=== PATIENT | female | born 1995 | race Caucasian/White ===

== ENCOUNTER 2017-06-28 22:31 | Emergency (ER) | payer OTHER ==
[~2017-06-28] VITALS: Ht 165.1 cm; Wt 60.0 kg
[~2017-06-28 22:31] MED LIST: PARO20TA99 PO
--- NOTE | 2017-06-28 22:35 | ED.ADGEN ---
Past History Past Medical History: Anxiety, Depression, Seizure, Other Past Surgical History: No Surgical History Smoking: Non-smoker Alcohol Use: None Drug Use: None Adult General Chief Complaint Chief Complaint " .. I am really nauseated.. and got this bad abd. pain .. " HPI HPI Patient is a 22 year old female who presents with above hx and complaints of nausea, vomiting, diarrhea and abd. pain. Pt. states pain started after eating chicken salad tonight at 1800. No one else got sick eating the same food. Pain is rated 10/10 in epigastric area. Pt. currently vomiting up food products. No history of travel or specific ill contacts.Immunosuppression. No history of prior abdomen problems. Patient mother has a history of gallbladder disease which required surgery. No history of dark or tarry stools. Has had multiple diarrhea stools. Review of Systems Review of Systems Constitutional: Denies fever or chills [] Eyes: Denies change in visual acuity, redness, or eye pain [] HENT: Denies nasal congestion or sore throat [] Respiratory: Denies cough or shortness of breath [] Cardiovascular: No additional information not addressed in HPI [] GI: Complaints of abdominal pain, nausea, vomiting, and diarrhea [] : Denies dysuria or hematuria [] Musculoskeletal: Denies back pain or joint pain [] Integument: Denies rash or skin lesions [] Neurologic: Denies headache, focal weakness or sensory changes [] Endocrine: Denies polyuria or polydipsia [] All other systems were reviewed and found to be within normal limits, except as documented in this note. Family History Family History Mother had gallbladder disease Current Medications Current Medications Current Medications Medications (Trade) Dose Ordered Sig/Olesya Start Time Stop Time Status Last Admin Dose Admin Diphenhydramine HCl (Benadryl) 25 mg 1X ONCE 06/28/17 23:30 06/28/17 23:31 DC 06/28/17 23:44 25 MG Famotidine (Pepcid Vial) 20 mg 1X ONCE 06/28/17 23:30 06/28/17 23:31 DC 06/28/17 23:44 20 MG Fentanyl Citrate (Fentanyl 2ml Vial) 50 mcg 1X ONCE 06/28/17 23:30 06/28/17 23:31 DC 06/28/17 23:44 50 MCG Info (Do NOT chart on this entry -- for MONITORING) 1 each PRN DAILY PRN 06/29/17 00:30 06/29/17 02:25 DC Iohexol (Omnipaque 300 Mg/ml) 75 ml 1X ONCE 06/29/17 01:00 06/29/17 01:01 DC 06/29/17 00:40 75 ML Lactated Ringer's 1,000 ml @ 1,000 mls/hr Q1H 06/28/17 23:30 06/29/17 00:29 DC 06/28/17 23:30 1,000 MLS/HR Ondansetron HCl (Zofran) 8 mg 1X ONCE 06/28/17 23:30 06/28/17 23:31 DC 06/28/17 23:29 8 MG Sodium Chloride 1,000 ml @ 1,000 mls/hr 1X ONCE 06/29/17 00:30 06/29/17 01:29 DC 06/28/17 23:12 1,000 MLS/HR See nursing for home medications Allergies Allergies Allergies Coded Allergies Type Severity Reaction Last Updated Verified No Known Drug Allergies 06/09/13 No Physical Exam Physical Exam Constitutional: Well developed, well nourished, in acute distress, non-toxic appearance. [] HENT: Normocephalic, atraumatic, bilateral external ears normal, oropharynx moist, no oral exudates, nose normal. Glasses Eyes: PERRLA, EOMI, conjunctiva normal, no discharge. [] Neck: Normal range of motion, no tenderness, supple, no stridor. [] Cardiovascular:Heart rate regular rhythm, no murmur [] Lungs & Thorax: Bilateral breath sounds clear to auscultation [] Abdomen: Bowel sounds hyperactive, soft, epigastric tenderness, no masses, no pulsatile masses. [] Umbilicus ring. ( Pt refuses removal for CT and xrays) Skin: Warm, dry, no erythema, no rash. [] Back: No tenderness, no CVA tenderness. [] Extremities: No tenderness, no cyanosis, no clubbing, ROM intact, no edema. [] Neurologic: Alert and oriented X 3, normal motor function, normal sensory function, no focal deficits noted. [] Psychologic: Affect anxious, judgement normal, mood normal. [] Current Patient Data Vital Signs Vital Signs Date Time Temp Pulse Resp B/P (MAP) Pulse Ox O2 Delivery O2 Flow Rate FiO2 06/29/17 02:00 99.4 06/28/17 23:38 149 20 96 Room Air Lab Results Laboratory Tests Test 06/28/17 23:12 06/28/17 23:30 White Blood Count 19.7 x10^3/uL (4.0-11.0) H Red Blood Count 5.41 x10^6/uL (3.50-5.40) H Hemoglobin 15.7 g/dL (12.0-15.5) H Hematocrit 46.0 % (36.0-47.0) Mean Corpuscular Volume 85 fL (79-100) Mean Corpuscular Hemoglobin 29 pg (25-35) Mean Corpuscular Hemoglobin Concent 34 g/dL (31-37) Red Cell Distribution Width 13.0 % (11.5-14.5) Platelet Count 301 x10^3/uL (140-400) Neutrophils (%) (Auto) 87 % (31-73) H Lymphocytes (%) (Auto) 10 % (24-48) L Monocytes (%) (Auto) 3 % (0-9) Eosinophils (%) (Auto) 1 % (0-3) Basophils (%) (Auto) 0 % (0-3) Neutrophils # (Auto) 17.1 x10^3uL (1.8-7.7) H Lymphocytes # (Auto) 1.9 x10^3/uL (1.0-4.8) Monocytes # (Auto) 0.6 x10^3/uL (0.0-1.1) Eosinophils # (Auto) 0.1 x10^3/uL (0.0-0.7) Basophils # (Auto) 0.1 x10^3/uL (0.0-0.2) Segmented Neutrophils % 76 % (35-66) H Band Neutrophils % 6 % (0-9) Lymphocytes % 8 % (24-48) L Atypical Lymphocytes % (Manual) 7 % (0-0) H Monocytes % 3 % (0-10) Platelet Estimate Adequate (ADEQUATE) Urine Collection Type U cath Urine Color Straw Urine Clarity Clear Urine pH 5.5 Urine Specific [place] >=1.030 Urine Protein Trace (NEG-TRACE) Urine Glucose (UA) Neg mg/dL (NEG) Urine Ketones (Stick) 15 mg/dL (NEG) Urine Blood Small (NEG) Urine Nitrite Neg (NEG) Urine Bilirubin Neg (NEG) Urine Urobilinogen Dipstick 0.2 mg/dL (0.2 mg/dL) Urine Leukocyte Esterase Neg (NEG) Urine RBC 1-2 /HPF (0-2) Urine WBC Rare /HPF (0-4) Urine Squamous Epithelial Cells Many /LPF Urine Bacteria Few /HPF (0-FEW) Urine Mucus Mod /LPF Sodium Level 138 mmol/L (136-145) Potassium Level 3.6 mmol/L (3.5-5.1) Chloride Level 103 mmol/L (98-107) Carbon Dioxide Level 23 mmol/L (21-32) Anion Gap 12 (6-14) Blood Urea Nitrogen 17 mg/dL (7-20) Creatinine 0.7 mg/dL (0.6-1.0) Estimated GFR (Cockcroft-Gault) 104.6 Glucose Level 93 mg/dL (70-99) Calcium Level 9.3 mg/dL (8.5-10.1) Total Bilirubin 1.1 mg/dL (0.2-1.0) H Direct Bilirubin 0.2 mg/dL (0.0-0.2) Aspartate Amino Transferase (AST) 23 U/L (15-37) Alanine Aminotransferase (ALT) 18 U/L (14-59) Alkaline Phosphatase 62 U/L (46-116) Total Protein 8.5 g/dL (6.4-8.2) H Albumin 4.6 g/dL (3.4-5.0) Amylase Level 89 U/L (25-115) Lipase 185 U/L (73-393) Urine Opiates Screen Neg (NEG) Urine Methadone Screen Neg (NEG) Urine Barbiturates Neg (NEG) Urine Phencyclidine Screen Neg (NEG) Urine Amphetamine/Methamphetamine Neg (NEG) Urine Benzodiazepines Screen Neg (NEG) Urine Cocaine Screen Neg (NEG) Urine Cannabinoids Screen Neg (NEG) Urine Ethyl Alcohol Neg (NEG) Influenza Type A (Rapid) Negative (NEGATIVE) Influenza Type B (Rapid) Negative (NEGATIVE) EKG EKG [] Radiology/Procedures Radiology/Procedures My interpretation of abdomen film shows no free air under diaphragm. No acute cardiopulmonary findings. Abdomen shows nonspecific bowel gas pattern. CT of abdomen findings no acute surgical process.[] Course & Med Decision Making Course & Med Decision Making Pertinent Labs and Imaging studies reviewed. (See chart for details). Stay on a clear fluid diet only. Push clear fluids. No milk products or solids for 48 hours. Take Zofran and Vicoprofen as needed for marked discomfort. May use small amounts of Pepto-Bismol for diarrhea episodes. Follow-up primary care. Return if any emergent changes. [] Final Impression Final Impression 1. Abdomen Pain 2. [Gastroenteritis 3. Leukocytosis 4. Viral Syndrome Problems: Dragon Disclaimer Dragon Disclaimer This electronic medical record was generated, in whole or in part, using a voice recognition dictation system. ALEE WILCOX MD Jun 28, 2017 22:35
[2017-06-28] MEDS ORDERED: FAMOTIDINE 20 MG/2 ML VIAL IVP ONE (23:30)
[2017-06-28] MEDS ORDERED: IV RINGERS SOLUTION,LACTATED 1,000 ML IV SCH (23:30)
[2017-06-28] MEDS ORDERED: ONDANSETRON PF 4 MG/2 ML VIAL. IV ONE (23:30)
[2017-06-28] MEDS ORDERED: diphenhydrAMINE 50 MG/ML VIAL IVP ONE (23:30)
[2017-06-28 23:31] LABS: BASO # 0.1 x10^3/uL (0.0-0.2); BASO % 0 % (0-3); EOS # 0.1 x10^3/uL (0.0-0.7); EOS % 1 % (0-3); HEMOGLOBIN 15.7 g/dL (12.0-15.5); LYMPH # 1.9 x10^3/uL (1.0-4.8); LYMPH % 10 % (24-48); MEAN CORPUSCULAR HEMOGLOBIN 29 pg (25-35); MEAN CORPUSCULAR HGB CONC 34 g/dL (31-37); MEAN CORPUSCULAR VOLUME 85 fL (79-100); MONO # 0.6 x10^3/uL (0.0-1.1); MONO % 3 % (0-9); NEUT # 17.1 x10^3uL (1.8-7.7); NEUT % 87 % (31-73); PLATELET COUNT 301 x10^3/uL (140-400); RED BLOOD COUNT 5.41 x10^6/uL (3.50-5.40); WHITE BLOOD COUNT 19.7 x10^3/uL (4.0-11.0)
[2017-06-28 23:36] LABS: ALBUMIN 4.6 g/dL (3.4-5.0); CALCIUM 9.3 mg/dL (8.5-10.1); CREATININE 0.7 mg/dL (0.6-1.0); DIRECT BILIRUBIN 0.2 mg/dL (0.0-0.2); GFR 104.6; POTASSIUM 3.6 mmol/L (3.5-5.1); TOTAL BILIRUBIN 1.1 mg/dL (0.2-1.0); TOTAL PROTEIN 8.5 g/dL (6.4-8.2)
[2017-06-28 23:38] VITALS: BP 123/84
[2017-06-28 23:38] LABS: AMPHETAMINE/METHAMPHETAMINE NEG (NEG); BARBITURATES NEG (NEG); BENZODIAZEPINES NEG (NEG); CANNABINOIDS NEG (NEG); COCAINE NEG (NEG); METHADONE NEG (NEG); OPIATES NEG (NEG); PHENCYCLIDINE NEG (NEG)
[2017-06-28 23:54] LABS: BILIRUBIN,URINE NEG (NEG); CLARITY,URINE CLEAR; COLOR,URINE STRAW; GLUCOSE,URINE NEG (NEG); NITRITE,URINE NEG (NEG); UROBILINOGEN,URINE 0.2 mg/dL (0.2 mg/dL)
[2017-06-28 23:55] LABS: BACTERIA,URINE FEW /HPF (0-FEW); SQUAMOUS EPITHELIAL CELL,UR MANY /LPF; WBC,URINE RARE /HPF (0-4)
[2017-06-29 00:05] LABS: % BANDS 6 % (0-9); % LYMPHS 8 % (24-48); % MONOS 3 % (0-10); % SEGS 76 % (35-66)
[2017-06-29 00:06] LABS: % ATYL 7 % (0-0); PLT ESTIMATE ADEQUATE (ADEQUATE)
[2017-06-29 00:07] LABS: INFLUENZA A PATIENT NEGATIVE (NEGATIVE); INFLUENZA B PATIENT NEGATIVE (NEGATIVE)
[2017-06-29] MEDS ORDERED: IV NORMAL SALINE 1,000ML 1,000 ML IV ONE (00:30)
[2017-06-29] MEDS ORDERED: CONTRAST GIVEN MC PRN (00:30)
[2017-06-29] MEDS ORDERED: IOHEXOL 300 MG/ML 75 ML VIAL. IV ONE (01:00)
--- NOTE | 2017-06-29 01:48 | RAD ---
INDICATION: Omni 300, 75ml IV. N, V, D and abdominal pain radiating down to LLQ x 3 hours. No prior exams for comparison COMPARISON: None. TECHNIQUE: Axial CT images were obtained through the abdomen and pelvis with intravenous contrast. One or more of the following individualized dose reduction techniques were utilized for this examination: 1. Automated exposure control; 2. Adjustment of the mA and/or kV according to patient size; 3. Use of iterative reconstruction technique. FINDINGS: Chest Base: Partially imaged without gross abnormality. Vessels: No abdominal aortic aneurysm. Liver/Biliary: No intrahepatic biliary duct dilation. Pancreas: No peripancreatic edema. Spleen: Normal. Kidneys/Adrenal: No hydronephrosis. Bladder: Largely decompressed. GI: No free air. No bowel dilation to suggest obstruction. The appendix does not appear dilated at this time. IMPRESSION: 1. No hydronephrosis or evidence of appendicitis. 2. No definite evidence of bowel obstruction. Electronically signed by: Eran Miller MD (06/29/2017 1:44 AM) [id number]
[2017-06-29] MEDS ORDERED: HYDR-79 PO (01:58)
[2017-06-29] MEDS ORDERED: ONDA8TAB12 PO (01:58)
[2017-06-29] MEDS ORDERED: RANI150T6 PO (02:02)
--- NOTE | 2017-06-29 09:56 | RAD ---
Indication: Nausea, vomiting and diarrhea. Technique: Abdominal x-rays Comparison: None Findings: Heart is normal in size. Lungs are clear. No pneumothorax or pleural effusion. No evidence of free intraperitoneal air. No abnormally dilated bowel loops or air-fluid levels. No abnormal calcific densities projecting over the abdomen or pelvis. Visualized osseous structures are within normal limits. Impression: No acute radiographic abnormalities.
== END 2017-06-29 02:00 | disposition home or self-care (01) ==
LOC: ER 22:31
DX: K52.9 Noninfective gastroenteritis and colitis, unspecified (principal); B34.9 Viral infection, unspecified; D72.829 Elevated white blood cell count, unspecified
CPT/HCPCS: 36415; 74022; 74177; 80048; 80076; 80307; 81001; 82150; 83690; 85007; 85025; 87324; 87804; 96361; 96374; 96375; 99285; J1200; J2405; J3010; J7120; Q9967; S0028; 81025; G0479; J7030

== ENCOUNTER 2018-02-11 16:54 | Emergency (ER) | payer OTHER ==
[~2018-02-11] VITALS: Ht 165.1 cm; Wt 60.0 kg
[~2018-02-11 16:54] MED LIST changes: +HYDR-79 PO; +ONDA8TAB12 PO; +RANI150T21 PO
--- NOTE | 2018-02-11 17:39 | RAD ---
CT HEAD WO CONTRAST History: Syncopal episode today, fall, hit head, seizure history Comparison: None. Technique: Noncontrast CT imaging was performed of the head. Exposure: One or more of the following individualized dose reduction techniques were utilized for this examination: 1. Automated exposure control 2. Adjustment of the mA and/or kV according to patient size 3. Use of iterative reconstruction technique. Findings: No acute extra-axial or parenchymal hemorrhage is identified. There is no significant intra-axial mass effect, midline shift, or extra-axial fluid collection. The irby-white differentiation of the major vascular territories is preserved. The ventricles, sulci, and cisterns are within normal limits in size and configuration. There is mild left maxillary sinus mucosal thickening. Mastoid air cells are aerated. No acute calvarial abnormality is identified. Impression: 1. No acute intracranial abnormality is identified. Electronically signed by: Jesús Crocker MD (02/11/2018 5:36 PM) [id number]
--- NOTE | 2018-02-11 17:47 | PHYS DOC ---
Past History Past Medical History: Seizure Past Surgical History: No Surgical History Smoking: Non-smoker Alcohol Use: None Drug Use: None Adult General Chief Complaint Chief Complaint: HEADACHE HPI HPI 22-year-old female presents after syncopal episode. The patient woke up around 5 AM to go to the restroom. After she urinated she went to stand up and felt like she might pass out. She was unable to move her feet started to fall. She could not catch herself. She remembers hitting her head on one wall and then the other wall and then on the floor. She then lost consciousness for an unknown amount of time. She woke up and went back to bed. The patient thought things would be fine so she did not come to the emergency room immediately. She decided to come in because she is having some visual disturbance with blurriness and she continues to have a generalized headache. She denies deficits. She has a history of absence seizures, but has not had one in over 10 years. She has not been on medication for at least that long. She denies chance of . Her last period was one week ago. She has been eating and drinking normally. She felt fine prior to this episode. Review of Systems Review of Systems Constitutional: Denies fever or chills [] Eyes: Blurry vision[] HENT: Denies nasal congestion or sore throat [] Respiratory: Denies cough or shortness of breath [] Cardiovascular: No additional information not addressed in HPI [] GI: Denies abdominal pain, nausea, vomiting, bloody stools or diarrhea [] : Denies dysuria or hematuria [] Musculoskeletal: Denies back pain or joint pain [] Integument: Denies rash or skin lesions [] Neurologic: Syncope, headache[] Endocrine: Denies polyuria or polydipsia [] All other systems were reviewed and found to be within normal limits, except as documented in this note. Allergies Allergies Allergies Coded Allergies Type Severity Reaction Last Updated Verified No Known Drug Allergies 06/09/13 No Physical Exam Physical Exam Constitutional: Well developed, well nourished, no acute distress, non-toxic appearance. [] HENT: Normocephalic, atraumatic, bilateral external ears normal, oropharynx moist, no oral exudates, nose normal. [] Eyes: PERRLA, EOMI, conjunctiva normal, no discharge. Photophobia [] Neck: Normal range of motion, no tenderness, supple, no stridor. [] Cardiovascular:Heart rate regular rhythm, no murmur [] Lungs & Thorax: Bilateral breath sounds clear to auscultation [] Abdomen: Bowel sounds normal, soft, no tenderness, no masses, no pulsatile masses. [] Skin: Warm, dry, no erythema, no rash. [] Back: No tenderness, no CVA tenderness. [] Extremities: No tenderness, no cyanosis, no clubbing, ROM intact, no edema. [] Neurologic: Alert and oriented X 3, normal motor function, normal sensory function, no focal deficits noted. [] Psychologic: Affect normal, judgement normal, mood normal. [] Current Patient Data Vital Signs Vital Signs Date Time Temp Pulse Resp B/P (MAP) Pulse Ox O2 Delivery O2 Flow Rate FiO2 02/11/18 17:36 98.3 105 20 99 Room Air Lab Results Laboratory Tests Test 02/11/18 16:43 POC Urine HCG, Qualitative hcg negative (Negative) EKG EKG Sinus rhythm, rate 86, normal axis, no ST elevations or depressions.[] Radiology/Procedures Radiology/Procedures [CT head: reviewed] Impressions: CT HEAD WO CONTRAST History: Syncopal episode today, fall, hit head, seizure history Comparison: None. Technique: Noncontrast CT imaging was performed of the head. Exposure: One or more of the following individualized dose reduction techniques were utilized for this examination: 1. Automated exposure control 2. Adjustment of the mA and/or kV according to patient size 3. Use of iterative reconstruction technique. Findings: No acute extra-axial or parenchymal hemorrhage is identified. There is no significant intra-axial mass effect, midline shift, or extra-axial fluid collection. The irby-white differentiation of the major vascular territories is preserved. The ventricles, sulci, and cisterns are within normal limits in size and configuration. There is mild left maxillary sinus mucosal thickening. Mastoid air cells are aerated. No acute calvarial abnormality is identified. Impression: 1. No acute intracranial abnormality is identified. Electronically signed by: Celeste Jones MD (02/11/2018 5:36 PM) [id number] DICTATED AND SIGNED BY: CELESTE JONES MD DATE: 02/11/18 [id number] CC: PETR GUTIERREZ DO; ANNETTE ALMAGUER MD Course & Med Decision Making Course & Med Decision Making Pertinent Labs and Imaging studies reviewed. (See chart for details) The patient's head CT is unremarkable. Her labs are unremarkable. Her EKG is unremarkable. Based on history, it appears as though this was vasovagal syncope. I will advise the patient to stay well-hydrated and to take her time when transitioning from lying to sitting to standing. I will treat her headache with 1 L normal saline, 30 mg Toradol, 25 mg of Benadryl, and 10 mg Reglan. I am signing out the patient to Dr. Ibanez at 1817 for final disposition. [] Headache improved with treatment. Patient neurologically intact. Symptoms consistent with syncopal episode unknown etiology and postconcussion syndrome secondary impact. Vital signs noted to be stable. Recommend supportive care, watchful waiting and PCP follow-up. [employer] note provided. Patient and family verbalize understanding agreement discharge instructions prior to departure. Dragon Disclaimer Dragon Disclaimer This electronic medical record was generated, in whole or in part, using a voice recognition dictation system. Departure Departure: Impression: Primary Impression: Concussion Additional Impression: Syncope and collapse Disposition: HOME, SELF-CARE Condition: GOOD Referrals: ANNETTE ALMAGUER MD (PCP) Scripts Prochlorperazine Maleate (Compazine) 5 Mg Tablet 5 MG PO Q8HRS PRN for NAUSEA, #5 TAB Prov: PETR IBANEZ DO 02/11/18 Problem Qualifiers PETR GUTIERREZ DO Feb 11, 2018 17:47 PETR IBANEZ DO Feb 11, 2018 23:17
--- NOTE | 2018-02-11 17:50 | EKG ---
[address] [address] Test Date: 2018-02-11 Test Time: 17:11:47 Pat Name: SHIVANI VILLARREAL Department: Room: Gender: F [employer]om[employer]: : 1995 Requested By: PETR GUTIERREZ Order Number: [id number] Reading MD: Jj May MD Measurements Intervals [place] Rate: 86 P: 63 [place]: 124 QRS: 56 QRSD: 82 T: 39 QT: 370 QTc: 446 Interpretive Statements SINUS RHYTHM Electronically Signed On 02-12-2018 8:10:10 CDT by Jj May MD
[2018-02-11 17:53] LABS: BARBITURATES NEG (NEG); BENZODIAZEPINES NEG (NEG); CANNABINOIDS NEG (NEG); COCAINE NEG (NEG); METHADONE NEG (NEG); OPIATES NEG (NEG); PHENCYCLIDINE NEG (NEG)
[2018-02-11 17:54] LABS: AMPHETAMINE/METHAMPHETAMINE NEG (NEG); BILIRUBIN,URINE NEG (NEG); CLARITY,URINE CLEAR; COLOR,URINE STRAW; GLUCOSE,URINE NEG (NEG); NITRITE,URINE NEG (NEG); RBC,URINE 0 /HPF (0-2); UROBILINOGEN,URINE 0.2 mg/dL (0.2 mg/dL); WBC,URINE 0 /HPF (0-4)
[2018-02-11 17:55] LABS: AMORPHOUS SEDIMENT,UR PRESENT /HPF; BACTERIA,URINE 0 /HPF (0-FEW); SQUAMOUS EPITHELIAL CELL,UR FEW /LPF
[2018-02-11 17:59] LABS: BASO # 0.1 x10^3/uL (0.0-0.2); BASO % 1 % (0-3); EOS # 0.1 x10^3/uL (0.0-0.7); EOS % 1 % (0-3); HEMATOCRIT 41.7 % (36.0-47.0); LYMPH # 2.2 x10^3/uL (1.0-4.8); LYMPH % 21 % (24-48); MEAN CORPUSCULAR HEMOGLOBIN 28 pg (25-35); MEAN CORPUSCULAR HGB CONC 34 g/dL (31-37); MEAN CORPUSCULAR VOLUME 83 fL (79-100); MONO # 0.9 x10^3/uL (0.0-1.1); MONO % 9 % (0-9); NEUT # 7.1 x10^3uL (1.8-7.7); NEUT % 69 % (31-73); PLATELET COUNT 377 x10^3/uL (140-400); RED BLOOD COUNT 5.05 x10^6/uL (3.50-5.40); RED CELL DISTRIBUTION WIDTH 13.8 % (11.5-14.5); WHITE BLOOD COUNT 10.3 x10^3/uL (4.0-11.0)
[2018-02-11 18:13] LABS: ALBUMIN 4.2 g/dL (3.4-5.0); ALBUMIN/GLOBULIN RATIO 1.2 (1.0-1.7); CALCIUM 9.5 mg/dL (8.5-10.1); CREATININE 0.9 mg/dL (0.6-1.0); GFR 78.3; POTASSIUM 3.5 mmol/L (3.5-5.1); TOTAL BILIRUBIN 1.1 mg/dL (0.2-1.0); TOTAL PROTEIN 7.8 g/dL (6.4-8.2)
[2018-02-11] MEDS: IV NORMAL SALINE 1,000ML 1,000 ML IV ONE (18:59)
[2018-02-11] MEDS: diphenhydrAMINE 50 MG/ML VIAL IVP ONE (18:59)
[2018-02-11] MEDS: METOCLOPRAMIDE HCL 10 MG/2 ML VIAL. IV ONE (19:00)
[2018-02-11] MEDS: KETOROLAC 30 MG/ML VIAL. IV ONE (19:00)
[2018-02-11] MEDS ORDERED: PROC5TAB34 PO (19:18)
[2018-02-11 19:30] VITALS: BP 106/61
== END 2018-02-11 20:00 | disposition home or self-care (01) ==
LOC: ER 16:54
DX: S06.0X9A Concussion with loss of consciousness of unspecified duration, initial encounter (principal); R55 Syncope and collapse; W18.09XA Striking against other object with subsequent fall, initial encounter; Y93.89 Activity, other specified; Y92.89 Other specified places as the place of occurrence of the external cause; Y99.8 Other external cause status
CPT/HCPCS: 36415; 70450; 80053; 80307; 81001; 81025; 85025; 93005; 96361; 96374; 96375; 99285; J1200; J1885; J2765; G0479; J7030

== ENCOUNTER → 2021-04-11 | Outpatient (CLI) | payer OTHER ==
[~2021-04-11] MED LIST changes: +HYDR-1179 PO; -HYDR-79 PO; +PROC5TAB34 PO; +RANI-376 PO; -RANI150T21 PO
== END ==
LOC: LAB 16:42
PROVIDERS: ATTEND Internal Medicine Cardiovascular Disease
DX: Z20.822 Contact with and (suspected) exposure to COVID-19 (principal)
CPT/HCPCS: U0003

== ENCOUNTER → 2021-07-06 | Outpatient (CLI) | payer OTHER ==
--- NOTE | 2021-07-06 14:32 | RAD ---
EXAM: Left forearm, 2 views. HISTORY: Pain. COMPARISON: None. FINDINGS: 2 views of the forearm are obtained. There is no fracture, dislocation or subluxation. Ther e is no joint effusion. There is no foreign body. IMPRESSION: No acute osseous finding. Electronically signed by: June Gonzalez MD (07/06/2021 2:29 PM) [id number]
== END ==
LOC: RAD 13:35
PROVIDERS: ATTEND Nurse Practitioner
DX: S59.912A Unspecified injury of left forearm, initial encounter (principal); X58.XXXA Exposure to other specified factors, initial encounter; Y93.89 Activity, other specified; Y92.89 Other specified places as the place of occurrence of the external cause; Y99.8 Other external cause status
CPT/HCPCS: 73090

== ENCOUNTER 2021-08-10 12:03 | Emergency (ER) | payer OTHER ==
[~2021-08-10] VITALS: Ht 165.1 cm; Wt 60.0 kg
[2021-08-10 12:16] VITALS: BP 106/61
[2021-08-10] MEDS ORDERED: CONTRAST GIVEN. MC PRN (12:45)
[2021-08-10] MEDS: IOHEXOL 350 MG/ML 100 ML VIAL. IV ONE (12:49)
[2021-08-10 13:03] LABS: CALCIUM 8.9 mg/dL (8.5-10.1); CREATININE 0.6 mg/dL (0.6-1.0); GFR 120.8; POTASSIUM 3.8 mmol/L (3.5-5.1)
[2021-08-10 13:04] LABS: BASO # 0.1 x10^3/uL (0.0-0.2); BASO % 1 % (0-3); EOS # 0.1 x10^3/uL (0.0-0.7); EOS % 1 % (0-3); HEMOGLOBIN 13.2 g/dL (12.0-15.5); LYMPH # 2.3 x10^3/uL (1.0-4.8); LYMPH % 29 % (24-48); MEAN CORPUSCULAR HEMOGLOBIN 29 pg (25-35); MEAN CORPUSCULAR HGB CONC 34 g/dL (31-37); MEAN CORPUSCULAR VOLUME 85 fL (79-100); MONO # 0.4 x10^3/uL (0.0-1.1); MONO % 5 % (0-9); NEUT # 5.1 x10^3uL (1.8-7.7); NEUT % 64 % (31-73); PLATELET COUNT 262 x10^3/uL (140-400); RED BLOOD COUNT 4.58 x10^6/uL (3.50-5.40); RED CELL DISTRIBUTION WIDTH 13.4 % (11.5-14.5)
[2021-08-10 13:09] LABS: ALBUMIN 3.9 g/dL (3.4-5.0); ALBUMIN/GLOBULIN RATIO 1.3 (1.0-1.7); TOTAL BILIRUBIN 1.5 mg/dL (0.2-1.0); TOTAL PROTEIN 6.8 g/dL (6.4-8.2)
[2021-08-10] MEDS: IV NORMAL SALINE 1,000ML 1,000 ML IV ONE (13:11)
--- NOTE | 2021-08-10 13:20 | PHYS DOC ---
Past History Past Medical History: Seizure Past Surgical History: No Surgical History Smoking: Non-smoker Alcohol Use: None Drug Use: None General Adult EDM: Chief Complaint: DIZZY/LIGHT HEADED HPI: HPI: Patient is a 26-year-old female past medical history seizures ADHD presents for evaluation of shortness of breath and dizziness. Approximately 45 minutes prior to arrival patient suddenly became dizzy and felt as if she was going to pass out. Patient heart rate was taken noted to be in the 120s. Patient states she has associated shortness of breath and chest heaviness. Patient states she feels as if she cannot take a deep breath. Patient denies any associated chest discomfort. Patient has no history of DVTs or PEs. EKG performed shows a heart rate of 94 no acute ischemic changes. Patient denies any URI signs and symptoms. Review of Systems: Review of Systems: Constitutional: Denies fever or chills Eyes: Denies change in visual acuity HENT: Denies nasal congestion or sore throat Respiratory: Denies cough or shortness of breath Cardiovascular: Denies chest pain or edema GI: Denies abdominal pain, nausea, vomiting, bloody stools or diarrhea : Denies dysuria Musculoskeletal: Denies back pain or joint pain Integument: Denies rash Neurologic: Denies headache, focal weakness or sensory changes Endocrine: Denies polyuria or polydipsia Lymphatic: Denies swollen glands Psychiatric: Denies depression or anxiety Current Medications: Current Meds: Current Medications Medications (Trade) Dose Ordered Sig/Olesya Start Time Stop Time Status Last Admin Dose Admin Info (Do NOT chart on this entry -- for MONITORING) 1 each PRN DAILY PRN 08/10/21 12:45 08/12/21 12:44 Iohexol (Omnipaque 350 Mg/ml) 100 ml 1X ONCE 08/10/21 12:45 08/10/21 12:46 DC 08/10/21 12:49 100 ML Sodium Chloride 1,000 ml @ 1,000 mls/hr 1X ONCE 08/10/21 13:15 08/10/21 14:14 08/10/21 13:11 1,000 MLS/HR Allergies: Allergies: Allergies Coded Allergies Type Severity Reaction Last Updated Verified No Known Drug Allergies 06/09/13 No Physical Exam: PE: Constitutional: Well developed, well nourished, no acute distress, non-toxic appearance. [] HENT: Normocephalic, atraumatic, bilateral external ears normal, oropharynx moist, no oral exudates, nose normal. [] Eyes: PERRLA, EOMI, conjunctiva normal, no discharge. [] Neck: Normal range of motion, no tenderness, supple, no stridor. [] Cardiovascular:Heart rate regular rhythm, no murmur [] Lungs & Thorax: Bilateral breath sounds clear to auscultation [] Abdomen: Bowel sounds normal, soft, no tenderness, no masses, no pulsatile masses. [] Skin: Warm, dry, no erythema, no rash. [] Back: No tenderness, no CVA tenderness. [] Extremities: No tenderness, no cyanosis, no clubbing, ROM intact, no edema. [] Neurologic: Alert and oriented X 3, normal motor function, normal sensory function, no focal deficits noted. [] Psychologic: Affect normal, judgement normal, mood normal. [] Current Patient Data: Labs: Laboratory Tests Test 08/10/21 12:30 White Blood Count 8.0 x10^3/uL (4.0-11.0) Red Blood Count 4.58 x10^6/uL (3.50-5.40) Hemoglobin 13.2 g/dL (12.0-15.5) Hematocrit 39.0 % (36.0-47.0) Mean Corpuscular Volume 85 fL (79-100) Mean Corpuscular Hemoglobin 29 pg (25-35) Mean Corpuscular Hemoglobin Concent 34 g/dL (31-37) Red Cell Distribution Width 13.4 % (11.5-14.5) Platelet Count 262 x10^3/uL (140-400) Neutrophils (%) (Auto) 64 % (31-73) Lymphocytes (%) (Auto) 29 % (24-48) Monocytes (%) (Auto) 5 % (0-9) Eosinophils (%) (Auto) 1 % (0-3) Basophils (%) (Auto) 1 % (0-3) Neutrophils # (Auto) 5.1 x10^3uL (1.8-7.7) Lymphocytes # (Auto) 2.3 x10^3/uL (1.0-4.8) Monocytes # (Auto) 0.4 x10^3/uL (0.0-1.1) Eosinophils # (Auto) 0.1 x10^3/uL (0.0-0.7) Basophils # (Auto) 0.1 x10^3/uL (0.0-0.2) Sodium Level 140 mmol/L (136-145) Potassium Level 3.8 mmol/L (3.5-5.1) Chloride Level 106 mmol/L (98-107) Carbon Dioxide Level 25 mmol/L (21-32) Anion Gap 9 (6-14) Blood Urea Nitrogen 13 mg/dL (7-20) Creatinine 0.6 mg/dL (0.6-1.0) Estimated GFR (Cockcroft-Gault) 120.8 BUN/Creatinine Ratio 22 (6-20) H Glucose Level 113 mg/dL (70-99) H Calcium Level 8.9 mg/dL (8.5-10.1) Total Bilirubin 1.5 mg/dL (0.2-1.0) H Aspartate Amino Transferase (AST) 21 U/L (15-37) Alanine Aminotransferase (ALT) 19 U/L (14-59) Alkaline Phosphatase 68 U/L (46-116) Total Protein 6.8 g/dL (6.4-8.2) Albumin 3.9 g/dL (3.4-5.0) Albumin/Globulin Ratio 1.3 (1.0-1.7) Vital Signs: Vital Signs Date Time Temp Pulse Resp B/P (MAP) Pulse Ox O2 Delivery O2 Flow Rate FiO2 08/10/21 12:16 98.4 98 16 106/61 (76) 100 Room Air EKG: EKG: [] Performed at 1236 Rate 94 Normal sinus rhythm No ST elevation No ST depression No acute ND Radiology/Procedures: Radiology/Procedures: [] Impressions: Examination: CT angiography chest with IV contrast HISTORY: History of shortness of breath, tachycardia COMPARISON: None TECHNIQUE: Axial CT angiographic images of chest were performed with IV contrast. Coronal and sagittal 3-D MIP reformats are performed. Exposure: One or more of the following individualized dose reduction techniques were utilized for this examination: 1. Automated exposure control 2. Adjustment of the mA and/or kV according to patient size 3. Use of iterative reconstruction technique FINDINGS: The visualized thyroid gland grossly appears unremarkable. The central airways are patent. The heart size grossly appears unremarkable. There is no evidence of filling defect identified in the main pulmonary arterial trunk and right and left main pulmonary arteries and visualized lobar, segmental branches of the pulmonary arteries. The lungs are clear. The liver, spleen, adrenals grossly appears unremarkable. No evidence of lytic bony destructive lesion. IMPRESSION: 1. No evidence of pulmonary embolism. 2. The lungs are clear. Heart Score: C/O Chest Pain: Yes HEART Score for Chest Pain: HEART Score for Chest Pain Response (Comments) Value History Slighlty/Non-Suspicious 0 ECG Normal 0 Age < 45 0 Risk Factors No Risk Factors 0 Troponin < Normal Limit 0 Total 0 Risk Factors: Risk Factors: DM, Current or recent (<one month) smoker, HTN, HLP, family history of CAD, obesity. Risk Scores: Score 0 - 3: 2.5% MACE over next 6 weeks - Discharge Home Score 4 - 6: 20.3% MACE over next 6 weeks - Admit for Clinical Observation Score 7 - 10: 72.7% MACE over next 6 weeks - Early Invasive Strategies Course & Med Decision Making: Course & Med Decision Making Pertinent Labs and Imaging studies reviewed. (See chart for details) [] Patient was evaluated for chief complaint. Work-up consisted of laboratory analysis radiologic imaging and EKG. Results reviewed and discussed with thiago manzanares. Patient's labs within normal limit EKG no acute ischemic changes CT of chest negative for PE. Treatment included IV fluids. Patient's vital signs stable unsure as the cause of patient's symptoms but at this time I feel the patient is stable for discharge. Dragon Disclaimer: Macarena Disclaimer: This electronic medical record was generated, in whole or in part, using a voice recognition dictation system. Departure Departure: Impression: Primary Impression: Dyspnea Additional Impression: Lightheaded Disposition: HOME / SELF CARE / HOMELESS Condition: STABLE Referrals: ANNETTE ALMAGUER MD (PCP) Patient Instructions: Dizziness, Shortness of Breath RAVI OLEARY I DO Aug 10, 2021 13:20
--- NOTE | 2021-08-10 13:28 | RAD ---
Examination: CT angiography chest with IV contrast HISTORY: History of shortness of breath, tachycardia COMPARISON: None TECHNIQUE: Axial CT angiographic images of chest were performed with IV contrast. Coronal and sagitta l 3-D MIP reformats are performed. Exposure: One or more of the following individualized dose reduction techniques were utilized for thi s examination: 1. Automated exposure control 2. Adjustment of the mA and/or kV according to patient size 3. Use of iterative reconstruction technique FINDINGS: The visualized thyroid gland grossly appears unremarkable. The central airways are patent. The heart size grossly appears unremarkable. There is no evidence of filling defect identified in the main pulm onary arterial trunk and right and left main pulmonary arteries and visualized lobar, segmental branc hes of the pulmonary arteries. The lungs are clear. The liver, spleen, adrenals grossly appears unrem arkable. No evidence of lytic bony destructive lesion. IMPRESSION: 1. No evidence of pulmonary embolism. 2. The lungs are clear. Electronically signed by: Jamil Hernandez MD (08/10/2021 1:26 PM) [id number]
--- NOTE | 2021-08-10 19:13 | EKG ---
[address] [address] Test Date: 2021-08-10 Test Time: 12:36:07 Pat Name: SHIVANI VILLARREAL Department: Room: Gender: F Milling Supervisor: ANDREIA : [id number] Requested By: RAVI OLEARY Order Number: [id number] Reading MD: Measurements Intervals [place] Rate: 94 P: 67 MT: 122 QRS: 64 QRSD: 78 T: 24 QT: 366 QTc: 463 Interpretive Statements SINUS RHYTHM QRS(T) CONTOUR ABNORMALITY CONSIDER ANTEROSEPTAL MYOCARDIAL DAMAGE POSSIBLY ABNORMAL ECG RI6.01 No previous ECG available for comparison
== END 2021-08-10 13:40 | disposition home or self-care (01) ==
LOC: ER 12:03
DX: R06.00 Dyspnea, unspecified (principal); R42 Dizziness and giddiness; F90.9 Attention-deficit hyperactivity disorder, unspecified type
CPT/HCPCS: 36415; 71275; 80053; 85025; 85379; 93005; 99285; J7030; Q9967